=== PATIENT | male | born 1985 | race Hispanic/Latino ===

== ENCOUNTER 2019-07-01 15:38 | Outpatient (CLI) | payer OTHER ==
--- NOTE | 2019-07-01 15:55 | RAD ---
Exam: Left foot fifth digit 3 views HISTORY: Contusion. FINDINGS: Mild subluxation at the proximal interphalangeal joint space. There does appear to be assoc iated soft tissue swelling. No evidence of fracture. IMPRESSION: Soft tissue swelling with subluxation.
== END 2019-07-01 15:39 | disposition home or self-care (01) ==
LOC: BICRAD 15:38
PROVIDERS: ATTEND Family Medicine
DX: S90.122A Contusion of left lesser toe(s) without damage to nail, initial encounter (principal); S93.135A Subluxation of interphalangeal joint of left lesser toe(s), initial encounter; M79.89 Other specified soft tissue disorders

== ENCOUNTER 2019-08-03 09:54 | Outpatient (CLI) | payer OTHER ==
--- NOTE | 2019-08-03 14:15 | RAD ---
EXAM: RIGHT HAND THREE VIEWS: 08/03/19 HISTORY: Tendinitis, right hand pain third digit. FINDINGS: No evidence for acute fracture or dislocation. Depending upon concern, if pain persists or does not resolve, consider nonemergent follow-up MRI stud y with attention to the area of clinical concern. IMPRESSION: No acute osseous process. POS: ANDREW
== END 2019-08-03 09:55 | disposition home or self-care (01) ==
LOC: BICRAD 09:54
PROVIDERS: ATTEND Family Medicine
DX: M77.9 Enthesopathy, unspecified (principal)

== ENCOUNTER 2020-12-19 10:25 | Outpatient (CLI) | payer OTHER | END 2020-12-19 10:26 | disposition home or self-care (01) | LOC: DTY/OP 10:25 | PROVIDERS: ATTEND Family Medicine | DX: E11.65 Type 2 diabetes mellitus with hyperglycemia (principal); Z79.4 Long term (current) use of insulin; Z71.3 Dietary counseling and surveillance | CPT/HCPCS: 97802 ==

== ENCOUNTER 2023-09-10 10:10 | Outpatient (CLI) | payer BC | END 2023-09-10 10:11 | disposition home or self-care (01) | LOC: BICRAD 10:10 | PROVIDERS: ATTEND Family Medicine | DX: M77.02 Medial epicondylitis, left elbow (principal) ==